=== PATIENT | female | born 1965 | race Caucasian/White ===

== ENCOUNTER 2016-06-18 09:47 | Emergency (ER) | payer BC ==
--- NOTE | 2016-06-18 10:47 | EDPHY ---
H & P Time Seen by Provider: 06/18/16 10:08 HPI/ROS: CHIEF COMPLAINT: Fall, left buttock pain HISTORY OF PRESENT ILLNESS: 50-year-old female presents to the emergency department by private vehicle complaining of pain in her left buttock. Patient states that she was snowboarding and fell 2 days ago after catching an edge. She continued to snowboard the rest of that day. She has been having trouble sleeping. She has pain with walking and movement. She complains of isolated pain to the left buttock. No radiation of symptoms. She did not hit her head or lose consciousness. Denies neck or back pain. Denies chest pain or difficulty breathing. Denies paresthesias in her upper or lower extremities. REVIEW OF SYSTEMS: Constitutional: No fever, no chills. Eyes: No double or blurry vision. ENT: No sore throat. Respiratory: No cough, no shortness of breath. Cardiac: No chest pain. Gastrointestinal: No abdominal pain, vomiting or diarrhea. Genitourinary: No dysuria. Musculoskeletal: Buttock pain as above. No neck or back pain. Skin: No rashes. Neurological: No headache. Past Medical/Surgical History: Negative Social History: and lives in [place] Smoking Status: Never smoked Physical Exam: General Appearance: Alert, no distress. Eyes: Pupils equal and round. Extraocular motions are all intact. ENT: Mouth: Mucous membranes moist. Respiratory: No wheezing, rhonchi, or rales, lungs are clear to auscultation. Cardiovascular: Regular rate and rhythm. Gastrointestinal: Abdomen is soft and nontender, no masses, no rebound or guarding, bowel sounds normal. Neurological: Alert and oriented x 3, cranial nerves II through XII grossly intact Skin: Warm and dry, no rashes. Musculoskeletal: Nontender to palpate along the cervical, thoracic or lumbar spine. Neck is supple. Tenderness with palpation to the left buttock area. There is no ecchymosis or palpable crepitus. She does have pain with lifting her left leg although she is able to do this fully. Full flexion and extension of her knees to her chest without difficulty. Extremities: Full range of motion and no peripheral edema. Psychiatric: Patient is oriented X 3, there is no agitation. Constitutional: Initial Vital Signs Temperature (C) 36.7 C 06/18/16 09:50 Heart Rate 78 06/18/16 09:50 Respiratory Rate 18 06/18/16 09:50 Blood Pressure 168/108 H 06/18/16 09:50 O2 Sat (%) 97 06/18/16 09:50 O2 Delivery Mode Room Air Allergies/Adverse Reactions: bacitracin [From Neosporin ([id number])] Allergy (Verified 06/18/16 09:50) bacitracin zinc [From Neosporin ([id number])] Allergy (Verified 06/18/16 09: 50) neomycin sulfate [From Neosporin ([id number])] Allergy (Verified 06/18/16 09: 50) polymyxin B [From Neosporin ([id number])] Allergy (Verified 06/18/16 09:50) Home Medications: Medication Instructions Recorded oxyCODONE/APAP 5/325 [Percocet 1 - 2 tab PO Q4-6PRN PRN #11 tab 06/18/16 5/325] Medical Decision Making - Diagnostics Imaging: X-rays of the pelvis reveal no fractures. This is reviewed by myself the PAC system as well as by the radiologist. ED Course/Re-evaluation: 50-year-old female presents after fall snowboarding 2 days ago. Persisting pain in her left buttock area. X-rays of the pelvis were negative for fracture. Patient was encouraged to continue anti-inflammatories. She was also given orthopedic referral to follow up with still having pain near the end of the week. She was also given prescription for Percocet just for sleep over the next few nights. She was instructed to return if she developed numbness or tingling in her toes, feelings of weakness in her lower legs, or if she felt worse in any way. Differential Diagnosis: Including but not limited to fracture, dislocation, contusion, sprain Departure - Departure Disposition: Home, Routine, Self-Care Clinical Impression: Left buttock contusion Condition: Good Instructions: Contusion in Adults (ED) Additional Instructions: Ibuprofen 600mg every 8 hours for pain as directed. Percocet for severe pain as directed. Activity as tolerated. Follow up with orthopedic doctor on Friday or next week to recheck. Return if you develop numbness or tingling in toes, increasing pain, or if you feel worse in any way. Referrals: Tyrese Newsome MD [Medical Doctor] - As per Instructions Prescriptions: oxyCODONE/APAP 325 [Percocet 5325] 1 - 2 tab PO Q4-6PRN PRN #11 tab PRN Reason: For Moderate To Severe Pain
[2016-06-18 11:48] VITALS: BP 118/78; PULSE 70; RESP 14; TEMP 98.4; O2SAT 94
== END 2016-06-18 11:47 | disposition home or self-care (01) ==
DX: S30.0XXA Contusion of lower back and pelvis, initial encounter (principal); V00.311A Fall from snowboard, initial encounter; Y93.23 Activity, snow (alpine) (downhill) skiing, snowboarding, sledding, tobogganing and snow tubing

== ENCOUNTER → 2017-01-15 | Outpatient (CLI) | payer BC | LOC: FIMAGING 15:30 | PROVIDERS: ATTEND Obstetrics & Gynecology | DX: Z12.31 Encounter for screening mammogram for malignant neoplasm of breast (principal) | CPT/HCPCS: G0202 ==

== ENCOUNTER → 2017-07-21 | Outpatient (CLI) | payer BC, OTHER | LOC: FIMAGING 09:39 | PROVIDERS: ATTEND Obstetrics & Gynecology | DX: N64.4 Mastodynia (principal) ==